=== PATIENT | male | born 1935 | race Caucasian/White ===

== ENCOUNTER 2016-09-23 13:00 | Emergency (ER) | payer MEDICARE, OTHER ==
[2016-09-23 13:18] VITALS: O2SAT 94
[2016-09-23] MEDS ORDERED: ALPRAZolam 0.25 MG TAB PO ONE (13:51)
[2016-09-23] MEDS ORDERED: KETOROLAC TROMETHAMINE INJ 30 MG/ML VIAL IM ONE (13:51)
[2016-09-23 15:47] VITALS: BP 140/84
--- NOTE | 2016-09-23 15:59 | ED.PDOC ---
History of Present Illness - General Chief Complaint: General Stated Complaint: elevated blood pressure Time Seen by Provider: 09/23/16 13:35 Source: patient Exam Limitations: no limitations - History of Present Illness Initial Comments: The patient is an 81-year-old male presenting to the emergency room secondary to elevated blood pressures this morning. Systolic blood pressures have ranged 180. Additionally the patient has just recently started taking a prednisone taper course and tramadol for his sciatica. he took the high-dose prednisone today for his prednisone taper for the first time and he additionally took 2 tramadol for his sciatica pain which she has never done before. The patient felt anxious as well as dizzy. So he presented here to the emergency room. The patient did check his blood pressure several times before coming up here and each time it continued to rise. He did take his other normal medications as he normally does. No chest pain or shortness of breath. No headache. No sick. Near-syncope. Timing/Duration: 1-3 hours Severity: moderate Improving Factors: nothing Worsening Factors: nothing Associated Symptoms: malaise, weakness Allergies/Adverse Reactions: Allergies Meperidine [From Demerol HCl] Allergy (Unverified 07/21/13 18:46) Home Medications: Ambulatory Orders Aspirin 02/11/16 Dutasteride [Avodart] 0.5 mg PO 02/11/16 Ezetimibe [Zetia] 10 mg PO 02/11/16 Hydrochlorothiazide 25 mg PO 02/11/16 Isosorbide Mononitrate 20 mg PO 02/11/16 Metoprolol Tartrate 02/11/16 Potassium Chloride 02/11/16 Rosuvastatin Calcium [Crestor] 40 mg PO 02/11/16 Tamsulosin [Flomax] 0.4 mg PO QD 02/11/16 Review of Systems - Review of Systems Constitutional: States: malaise EENTM: States: no symptoms reported Respiratory: States: no symptoms reported Cardiology: States: no symptoms reported Gastrointestinal/Abdominal: States: no symptoms reported Genitourinary: States: no symptoms reported Musculoskeletal: States: see HPI Skin: States: no symptoms reported Neurological: States: anxiety, other - dizziness Endocrine: States: no symptoms reported All other Systems: No Change from Baseline Past Medical History (General) - Patient Medical History Hx Seizures: No Hx Stroke: No Hx Dementia: No Hx Asthma: No Hx of COPD: No Hx Cardiac Disorders: Yes Hx Pacemaker: No Hx Hypertension: Yes Hx Thyroid Disease: No Hx Diabetes: No Hx Gastroesophageal Reflux: No Hx Cancer: Yes - back Hx of HIV: No Hx MRSA: No - Vaccination History Hx Influenza Vaccination: Yes Hx Pneumococcal Vaccination: Yes - Social History Hx Tobacco Use: No Hx Alcohol Use: No Hx Substance Use: No Hx Substance Use Treatment: No Hx Depression: No - Female History Patient is a Female of Child Bearing Age (10 -59 yrs old): No Family Medical History - Family History Father Family History: Unknown Physical Exam - Physical Exam General Appearance: Alert, Anxious Eye Exam: bilateral normal Ears, Nose, Throat: normal ENT inspection, normal pharynx Neck: non-tender, full range of motion, supple, normal inspection Respiratory: chest non-tender, lungs clear, normal breath sounds, no respiratory distress, no accessory muscle use Cardiovascular/Chest: normal peripheral pulses, no edema, other - regular rate Peripheral Pulses: radial,right: 2+, radial,left: 2+ Gastrointestinal/Abdominal: non tender, soft Rectal Exam: deferred Back Exam: normal inspection Extremity: normal range of motion, non-tender, normal inspection, no pedal edema , normal capillary refill Neurologic: alert, normal mood/affect, oriented x 3 - he is anxious Skin Exam: normal color Comments: Vital Signs - 24 hr 09/23/16 09/23/16 13:14 15:46 Pulse Rate [ 98 H left arm] Respiratory 18 Rate Blood Pressure 194/105 140/84 [Left Arm] O2 Sat by Pulse 94 L Oximetry Progress - Progress Progress: 09/23/16 16:01 the patient is an 81-year-old male presenting to the emergency room secondary to dizziness and anxiety with an elevated blood pressure. I do suspect that the dizziness is due to the tramadol that he took. He does need to try and not double up on the dose on this medication. The elevated blood pressure is likely due to the anxiety as well as the pain from his sciatica. The steroids are probably increasing his blood pressure some as well. The patient responded very nicely to a dose of IM Toradol and a small dose of oral Xanax. Blood pressures have normalized. Pain has improved. The patient will be discharged home. ER warnings were given for any acute worsening. He needs to keep follow-up with his primary care doctor. 09/23/16 16:02 Departure - Departure Clinical Impression: Dizziness, nonspecific, Anxiety about health Sciatica Qualifiers: Laterality: unspecified laterality Qualifier Code: (M54.30) Sciatica, unspecified side Disposition: Discharge to Home or Self Care Condition: Fair Departure Forms: ED Discharge - Pt. Copy, Patient Portal Self Enrollment Instructions: DI for Sciatica Diet: low salt diet Activity: increase activity as tolerated Referrals: Chris Parker MD [Primary Care Provider] - 1-2 Weeks Home Medications: Ambulatory Orders Aspirin 02/11/16 Dutasteride [Avodart] 0.5 mg PO 02/11/16 Ezetimibe [Zetia] 10 mg PO 02/11/16 Hydrochlorothiazide 25 mg PO 02/11/16 Isosorbide Mononitrate 20 mg PO 02/11/16 Metoprolol Tartrate 02/11/16 Potassium Chloride 02/11/16 Rosuvastatin Calcium [Crestor] 40 mg PO 02/11/16 Tamsulosin [Flomax] 0.4 mg PO QD 02/11/16 Additional Instructions: the patient is an 81-year-old male presenting to the emergency room secondary to dizziness and anxiety with an elevated blood pressure. I do suspect that the dizziness is due to the tramadol that he took. He does need to try and not double up on the dose on this medication. The elevated blood pressure is likely due to the anxiety as well as the pain from his sciatica. The steroids are probably increasing his blood pressure some as well. The patient responded very nicely to a dose of IM Toradol and a small dose of oral Xanax. Blood pressures have normalized. Pain has improved. The patient will be discharged home. ER warnings were given for any acute worsening. He needs to keep follow-up with his primary care doctor.
== END 2016-09-23 16:36 | disposition home or self-care (01) ==
LOC: ER 13:00
DX: R42 Dizziness and giddiness (principal); F41.9 Anxiety disorder, unspecified; M54.30 Sciatica, unspecified side; Z85.89 Personal history of malignant neoplasm of other organs and systems; Z88.8 Allergy status to other drugs, medicaments and biological substances; Z79.82 Long term (current) use of aspirin; Z79.899 Other long term (current) drug therapy
CPT/HCPCS: 93005; J1885

== ENCOUNTER 2016-09-26 18:49 | Emergency (ER) | payer MEDICARE, OTHER ==
[2016-09-26 19:17] VITALS: TEMP 97.7
--- NOTE | 2016-09-26 19:39 | ED.PDOC ---
History of Present Illness - General Chief Complaint: Neuro Symptoms/Deficits Stated Complaint: Stroke symptoms Time Seen by Provider: 09/26/16 19:01 Source: patient, RN notes reviewed, Vital Signs reviewed, family, EMS Exam Limitations: clinical condition - History of Present Illness Initial Comments: Patient is an 81 y/o male who has had an upper respiratory infection for the past week. He was doing ok and he and his took a nap at 1300. His tried to wake him at 1700, however it was very difficult to wake him. When she was finally able to get him to respond, she called his children and grandchildren. They called EMS and the patient arrived at 1850. He was taken directly to the CT scanner. Timing/Duration: 4-6 hours Severity: severe Episode Description: Left facial drooping, left-sided Improving Factors: nothing Worsening Factors: nothing Associated Symptoms: sleepy, slurred speech, weakness Allergies/Adverse Reactions: Allergies Meperidine [From Demerol HCl] Allergy (Unverified 07/21/13 18:46) Home Medications: Ambulatory Orders Aspirin 02/11/16 Hydrochlorothiazide 25 mg PO 02/11/16 Isosorbide Mononitrate 20 mg PO 02/11/16 Metoprolol Tartrate 02/11/16 Potassium Chloride 02/11/16 Tamsulosin [Flomax] 0.4 mg PO QD 02/11/16 Prednisolone [Millipred Dp] 5 mg PO DAILY 09/26/16 Promethazine W/Codeine Syr [Phenergan With Codeine Syrup] 10 ml PO PRN PRN 09/26 Tramadol HCl [Ultram] 50 mg PO PRN PRN 09/26/16 Review of Systems - Review of Systems Constitutional: States: no symptoms reported EENTM: States: blurred vision, throat pain Respiratory: States: cough Cardiology: States: no symptoms reported Gastrointestinal/Abdominal: States: no symptoms reported Genitourinary: States: no symptoms reported Musculoskeletal: States: joint pain, muscle pain Skin: States: no symptoms reported Neurological: States: numbness, weakness Endocrine: States: no symptoms reported Hematologic/Lymphatic: States: easy bruising Unable to Obtain Due To: condition All other Systems: Reviewed and Negative Past Medical History (General) - Patient Medical History Hx Seizures: No Hx Stroke: No Hx Dementia: No Hx Asthma: No Hx of COPD: No 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[place], CABG Hx Congestive Heart Failure: No Hx Pacemaker: No Hx Hypertension: Yes Hx Thyroid Disease: No Hx Diabetes: No Hx Gastroesophageal Reflux: No Hx Cancer: Yes - back malanoma Hx of HIV: No Hx MRSA: No Surgical History: cholecystectomy - Vaccination History Hx Tetanus, Diphtheria Vaccination: Yes Hx Influenza Vaccination: Yes Hx Pneumococcal Vaccination: Yes Immunizations Up to Date: Yes - Social History Hx Tobacco Use: No Hx Alcohol Use: No Hx Substance Use: No Hx Substance Use Treatment: No Hx Depression: No Family Medical History - Family History Father Family History: Unknown Physical Exam - Physical Exam General Appearance: Alert, Comfortable ENT Exam: normal ENT inspection Neck: other - weakness on left. unable to hold head up. 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 Therefore, Patient was transferred by ground. - Results/Orders Results/Orders: 09/26/16 09/26/16 18:59 19:28 Temperature 97.7 F Pulse Rate 74 74 Pulse Rate [ 74 74 Right Radial] Respiratory 18 18 Rate Blood Pressure 159/91 [Right Arm] O2 Sat by Pulse 97 Oximetry 09/26/16 19:32 Chest,1 View [RAD] Stat 09/26/16 19:54 BLOOD CULTURE Stat Laboratory Results WBC 17.7 K/mm3 (4.8-10.8) H 09/26/16 19:15 RBC 5.82 M/mm3 (4.70-6.10) 09/26/16 19:15 Hgb 17.1 gm/dL (14.0-18.0) 09/26/16 19:15 Hct 52.8 % (42.0-52.0) H 09/26/16 19:15 MCV 90.7 fl (80.0-94.0) 09/26/16 19:15 MCH 29.3 pg (27.0-31.0) 09/26/16 19:15 MCHC 32.4 g/dL (33.0-37.0) L 09/26/16 19:15 RDW 14.8 % (11.5-14.5) H 09/26/16 19:15 Plt Count 179 K/mm3 (130-400) 09/26/16 19:15 MPV 8.8 fl (7.40-10.4) 09/26/16 19:15 Absolute Neuts (auto) 14.80 K/uL (1.8-6.8) H 09/26/16 19:15 Absolute Lymphs (auto) 1.20 K/uL (1.0-3.4) 09/26/16 19:15 Absolute Monos (auto) 1.70 K/uL (0.2-0.8) H 09/26/16 19:15 Absolute Eos (auto) 0.00 K/uL (0.0-0.4) 09/26/16 19:15 Absolute Basos (auto) 0.10 K/uL (0.0-0.1) 09/26/16 19:15 Neutrophils % 83.4 % (42.0-78.0) H 09/26/16 19:15 Lymphocytes % 6.5 % (20.0-50.0) L 09/26/16 19:15 Monocytes % 9.5 % (2.0-9.0) H 09/26/16 19:15 Eosinophils % 0.0 % (1.0-5.0) L 09/26/16 19:15 Basophils % 0.6 % (0.0-2.0) 09/26/16 19:15 PT 11.6 SECONDS (9.4-12.5) 09/26/16 19:15 INR 1.030 09/26/16 19:15 PTT (SP) 29.5 SECONDS (25.1-36.5) 09/26/16 19:15 Sodium 142 mmol/L (135-145) 09/26/16 19:15 Potassium 4.1 mmol/L (3.6-5.0) 09/26/16 19:15 Chloride 99 mmol/L (101-111) L 09/26/16 19:15 Carbon Dioxide 34 mmol/L (21-31) H 09/26/16 19:15 Anion Gap 13.1 (12-18) 09/26/16 19:15 BUN 26 mg/dL (7-18) H 09/26/16 19:15 Creatinine 1.10 mg/dL (0.6-1.3) 09/26/16 19:15 BUN/Creatinine Ratio 23.6 (10-20) H 09/26/16 19:15 Random Glucose 144 mg/dL (70-105) H 09/26/16 19:15 Serum Osmolality 290.4 mOsm/L (275-295) 09/26/16 19:15 Calcium 8.8 mg/dL (8.4-10.2) 09/26/16 19:15 Magnesium 2.0 mg/dL (1.8-2.5) 09/26/16 19:15 Creatine Kinase 261 IU/L (38-174) H* 09/26/16 19:15 CK-MB (CK-2) 14.3 ng/mL (0.0-4.4) H* 09/26/16 19:15 CK-MB (CK-2) % 5.48 % (0.0-3.5) H 09/26/16 19:15 Troponin I 0.02 ng/mL (0.01-0.05) 09/26/16 19:15 NIH score - 11 - EKG/XRAY/CT EKG: Sinus - 71 bpm, Abnormal Q waves - Leads III, aVF, Unchanged from Comments: [place] NML, NML intervals, abnormal EKG CT Ordered: Yes CT Interpretation Call Back: Yes CT Interpretation Call Back Date: 09/26/16 CT Interpretation Call Back Time: 19:23 Stroke Information - Onset of Symptoms Symptoms of Stroke: Weakness of limb, Left Hemiparesis Stroke Onset of Symptoms Date: 09/26/16 Stroke Onset of Symptoms Time: 13:00 - Contraindications t-PA Contraindication: Drug Tx Not Indicated - t-PA window Departure - Departure Clinical Impression: Cerebrovascular accident Qualifiers: CVA mechanism: occlusion Precerebral and cerebral artery: middle cerebral artery, right Qualifier Code: (I63.511) Cerebral infarction due to unspecified occlusion or stenosis of right middle cerebral artery Time of Disposition: 19:50 Disposition: Transfer to Hospital Condition: Serious Home Medications: Ambulatory Orders Aspirin 02/11/16 Hydrochlorothiazide 25 mg PO 02/11/16 Isosorbide Mononitrate 20 mg PO 02/11/16 Metoprolol Tartrate 02/11/16 Potassium Chloride 02/11/16 Tamsulosin [Flomax] 0.4 mg PO QD 02/11/16 Prednisolone [Millipred Dp] 5 mg PO DAILY 09/26/16 Promethazine W/Codeine Syr [Phenergan With Codeine Syrup] 10 ml PO PRN PRN 09/26 Tramadol HCl [Ultram] 50 mg PO PRN PRN 09/26/16 Critical Care Note - Critical Care Note Total Time (mins): 60 Transfer to Outside Facility - Transfer Information Accepting Facility: [facility] Reason for Transfer: specialized care not available
--- NOTE | 2016-09-26 19:41 | CT ---
EXAM: Head CLINICAL INDICATION: 81-year-old male with facial droop and left-sided weakness, rule out CVA. COMPARISON: 09/25/2008. TECHNIQUE: CT brain without contrast. FINDINGS: Effacement of the RIGHT subcortical white matter, basal ganglia and adjacent RIGHT frontal lobe raising the concern for acute infarction finding which appears to be new since the previous lesion, however findings are limited secondary to severe motion streak artifact through that region. Multifocal regions of patchy hypoattenuation are present in a subcortical and periventricular deep white matter distribution, nonspecific; however, most likely represent small vessel ischemic disease, age indeterminate. The ventricles, sulci, and cisterns are symmetric and unremarkable. The flor-white matter differentiation is otherwise preserved. There is no mass effect, midline shift, intra- or extra-axial fluid collection/acute hemorrhage. The osseous structures are unremarkable. The paranasal sinuses and mastoid air cells are clear. IMPRESSION: 1. Findings above raising the concern for RIGHT side basal ganglia and frontal acute infarction, however findings are limited secondary to severe streak artifact through this region. 2. Nonspecific white matter change most likely small vessel ischemic disease, age indeterminate. 3. CT is insensitive for early evaluation of acute stroke. If there is clinical concern for acute ischemia, an MRI may be considered. Electronically signed by: Shelley Marshall MD 09/26/2016 7:40 PM [employer]
[2016-09-26 19:59] VITALS: BP 166/95; O2SAT 95
--- NOTE | 2016-09-26 20:08 | RAD ---
EXAM DESCRIPTION: Chest,1 View CLINICAL HISTORY: wet lung sounds COMPARISON: July 21, 2013 FINDINGS: Patient is rotated. Patient is status post median sternotomy. EKG leads project over the chest. There is atherosclerosis. Aorta is tortuous. Cardiac silhouette is enlarged unchanged compared with the prior exam. Increased opacity of the right infrahilar level could be secondary to an infectious process versus atelectasis versus bronchitis. Asymmetric pulmonary edema is not excluded. There is no pneumothorax. IMPRESSION: Increased opacity of the right infrahilar level could be secondary to an infectious process versus atelectasis versus bronchitis. Asymmetric pulmonary edema is not excluded. Recommend follow-up. Electronically signed by: Cecilio Lam MD 09/26/2016 8:07 PM CHIEF OF SERVICE
== END 2016-09-26 20:00 | disposition short-term general hospital (02) ==
LOC: ER 18:49
DX: I63.511 Cerebral infarction due to unspecified occlusion or stenosis of right middle cerebral artery (principal); I25.2 Old myocardial infarction; I10 Essential (primary) hypertension; Z95.1 Presence of aortocoronary bypass graft; Z85.820 Personal history of malignant melanoma of skin; Z79.82 Long term (current) use of aspirin; Z79.899 Other long term (current) drug therapy; Z88.8 Allergy status to other drugs, medicaments and biological substances

== ENCOUNTER 2016-10-31 06:20 | Emergency (ER) | payer MEDICARE, OTHER ==
[2016-10-31] MEDS ORDERED: EPINEPHrine INJ 0.1 MG/ML 10 ML SYG IV ONE ×2 (06:22→06:39)
[2016-10-31] MEDS ORDERED: NOREPINEPHRINE BITARTRATE 4 MG/4 ML VIAL IVPB ONE (06:30)
[2016-10-31] MEDS ORDERED: DEXTROSE 5% 250ML 250 ML IVPB ONE (06:30)
[2016-10-31] MEDS ORDERED: NITROGLYCERIN 0.4 MG 25 EA TAB SL ONE (06:32)
[2016-10-31] MEDS ORDERED: ASPIRIN TABLET 325 MG TAB PO ONE (06:32)
[2016-10-31] MEDS ORDERED: SODIUM CHLORIDE 0.9% (FLUSH) 10 ML SYG IV PRN (06:32)
[2016-10-31] MEDS ORDERED: ATROPINE 1 MG/10 ML SYG IV ONE (06:38)
[2016-10-31 06:45] VITALS: BP 103/53; O2SAT 58
--- NOTE | 2016-10-31 07:08 | ED.PDOC ---
History of Present Illness - General Chief Complaint: Cardiac Respiratory Arrest Stated Complaint: cardiac arrest Time Seen by Provider: 10/31/16 06:54 Source: RN notes reviewed, Vital Signs reviewed, family, EMS Exam Limitations: clinical condition - History of Present Illness Initial Comments: Patient presents via EMS in full cardiac arrest with CPR in progress. According to patient had 3 episodes of vomiting then became unresponsive. She called EMS and ambulance was dispatched @ 05:41. 2 minutes later reported he was not breathing and did not have a pulse. training systems officer on scene started CPR and EMS continued. In route to ER patient received Epi X 2 and Bicarb X1. In ER patient received Epi X 1 and pulse returned with BP of 117/54. EKG was obtained which showed Atrial flutter with a rate of 72 bpm. Patient maintained this for a few minutes and then BP started to drop. Levofed was started but patients heart rate continued to drop. Atropine 1mg was given w/o improvement. Another amp of Epi was given and CPR was restarted. @ 06:44 patient was in PEA with rate in the 20's and no detectable blood pressure so code was called. Timing/Duration: 1 hour Severity: severe Improving Factors: nothing Worsening Factors: nothing Allergies/Adverse Reactions: Allergies Meperidine [From Demerol HCl] Allergy (Unverified 07/21/13 18:46) Home Medications: Ambulatory Orders Aspirin 81 mg PO DAILY 02/11/16 Hydrochlorothiazide 25 mg PO DAILY 02/11/16 Isosorbide Mononitrate 20 mg PO DAILY 02/11/16 Metoprolol Tartrate 02/11/16 Potassium Chloride 02/11/16 Tamsulosin [Flomax] 0.4 mg PO QD 02/11/16 Prednisolone [Millipred Dp] 5 mg PO DAILY 09/26/16 Promethazine W/Codeine Syr [Phenergan With Codeine Syrup] 10 ml PO PRN PRN 09/26 Tramadol HCl [Ultram] 50 mg PO PRN PRN 09/26/16 Review of Systems - Review of Systems Unable to Obtain Due To: condition Past Medical History (General) - Patient Medical History Hx Seizures: No Hx Stroke: No Hx Dementia: No Hx Asthma: No Hx of COPD: No 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[place], CABG Hx Congestive Heart Failure: No Hx Pacemaker: No Hx Hypertension: Yes Hx Thyroid Disease: No Hx Diabetes: No Hx Gastroesophageal Reflux: No Hx Cancer: Yes - back malanoma Hx of HIV: No Hx MRSA: No - Vaccination History Hx Tetanus, Diphtheria Vaccination: Yes Hx Influenza Vaccination: Yes Hx Pneumococcal Vaccination: Yes - Social History Hx Tobacco Use: No Hx Alcohol Use: No Hx Substance Use: No Hx Substance Use Treatment: No Hx Depression: No Family Medical History - Family History Father Family History: Unknown Physical Exam - Physical Exam General Appearance: Other - On stretcher intubated with CPR in process. Respiratory: other - Intubated and continuously bagged with coarse airway sounds. Cardiovascular/Chest: other - Initially had irregular HR, never a regular rhythm Gastrointestinal/Abdominal: distended Neurologic: other - Unresponsive Departure - Departure Clinical Impression: Cardiac arrest Time of Disposition: 06:45 Disposition: Condition: Serious Departure Forms: ED Discharge - Pt. Copy, Patient Portal Self Enrollment Home Medications: Ambulatory Orders Aspirin 81 mg PO DAILY 02/11/16 Hydrochlorothiazide 25 mg PO DAILY 02/11/16 Isosorbide Mononitrate 20 mg PO DAILY 02/11/16 Metoprolol Tartrate 02/11/16 Potassium Chloride 02/11/16 Tamsulosin [Flomax] 0.4 mg PO QD 02/11/16 Prednisolone [Millipred Dp] 5 mg PO DAILY 09/26/16 Promethazine W/Codeine Syr [Phenergan With Codeine Syrup] 10 ml PO PRN PRN 09/26 Tramadol HCl [Ultram] 50 mg PO PRN PRN 09/26/16 Critical Care Note - Critical Care Note Total Time (mins): 25 - Actively coding patient.
== END 2016-10-31 09:00 | disposition expired ==
LOC: ER 06:20
DX: I46.9 Cardiac arrest, cause unspecified (principal); I25.2 Old myocardial infarction; I10 Essential (primary) hypertension; Z95.1 Presence of aortocoronary bypass graft; Z79.82 Long term (current) use of aspirin; Z79.899 Other long term (current) drug therapy; Z85.820 Personal history of malignant melanoma of skin; Z88.8 Allergy status to other drugs, medicaments and biological substances
CPT/HCPCS: 36600; 80048; 82550; 82553; 82803; 82805; 83880; 84484; 85025; 85379; 85610; 85730; 92950; 93005; J7060